=== PATIENT | female | born 1980 | race Caucasian/White ===

== ENCOUNTER → 2017-03-27 | Outpatient (CLI) | payer BC ==
--- NOTE | 2017-03-27 10:27 | MM ---
Reason for exam: screening (asymptomatic). Baseline mammogram. Physical Findings: Nurse did not find any significant physical abnormalities on exam. MG 3D Screening Mammo W/Cad Bilateral CC and MLO view(s) were taken. There are scattered fibroglandular densities. There is no discrete abnormality. These results were verbally communicated with the patient and result sheet given to the patient on 03/27/17. ASSESSMENT: Negative, BI-RAD 1 RECOMMENDATION: Routine screening mammogram of both breasts at age 42.
== END | disposition home or self-care (01) ==
LOC: RADMAMWWP 09:34
PROVIDERS: ATTEND Obstetrics & Gynecology
DX: Z12.31 Encounter for screening mammogram for malignant neoplasm of breast (principal)
CPT/HCPCS: 77063; G0202

== ENCOUNTER → 2017-04-10 | Outpatient (CLI) | payer BC ==
[2017-04-10 10:55] LABS: Basophils % (A) 0 %; CH 29.9; CHCM 34.3; Eosinophils # (A) 0.4 k/uL (0-0.7); Eosinophils % (A) 3 %; HCT 44.8 % (34.0-46.0); HDW 2.78; HGB 15.1 gm/dL (11.4-16.0); Luc # (Auto) 0.24; Luc % (Auto) 2; Lymphocytes # (A) 2.6 k/uL (1.0-4.8); Lymphocytes % (A) 25 %; MCH 29.6 pg (25.0-35.0); MCHC 33.7 g/dL (31.0-37.0); MCV 87.7 fL (80.0-100.0); Mean Platelet Volume 8.4; Monocytes # (A) 0.5 k/uL (0-1.0); Monocytes % (A) 5 %; Neutrophils # (A) 6.6 k/uL (1.3-7.7); Neutrophils % (A) 64 %; RBC 5.11 m/uL (3.80-5.40); RDW 14.8 % (11.5-15.5); WBC 10.4 k/uL (3.8-10.6)
== END | disposition home or self-care (01) ==
LOC: LABPAT 10:31
PROVIDERS: ATTEND Obstetrics & Gynecology
DX: Z01.812 Encounter for preprocedural laboratory examination (principal)
CPT/HCPCS: 85025

== ENCOUNTER → 2017-04-10 | Outpatient (CLI) | payer BC ==
[2017-04-10 11:11] LABS: ALT 36 U/L (9-52); AST 31 U/L (14-36); Alkaline Phosphatase 63 U/L (38-126); Anion Gap 10 mmol/L; Blood Urea Nitrogen 18 mg/dL (7-17); Calcium 8.7 mg/dL (8.4-10.2); Carbon Dioxide 28 mmol/L (22-30); Chloride 104 mmol/L (98-107); Cholesterol 170 mg/dL (<200); Creatine Kinase 218 U/L (30-135); Glucose 82 mg/dL (74-99); HDL Cholesterol 38 mg/dL (40-60); Non-African American GFR(MDRD) >60 (>60 ml/min/1.73 sqM); Potassium 4.1 mmol/L (3.5-5.1); Sodium 142 mmol/L (137-145); Total Bilirubin 0.5 mg/dL (0.2-1.3); Total Protein 7.1 g/dL (6.3-8.2); Triglycerides 148 mg/dL (<150)
== END | disposition home or self-care (01) ==
LOC: LABWHC1 10:31
PROVIDERS: ATTEND Pediatrics
DX: Z00.00 Encounter for general adult medical examination without abnormal findings (principal); M25.512 Pain in left shoulder; Z13.220 Encounter for screening for lipoid disorders
CPT/HCPCS: 36415; 80053; 80061; 82550

== ENCOUNTER 2017-05-01 05:59 | Day surgery (SDC) | payer BC ==
[2017-04-22 15:54] VITALS: BMI 37.7
--- NOTE | 2017-04-30 21:24 | P.HPOB ---
History of Present Illness H&P Date: 04/30/17 Chief Complaint: Menorrhagia This is a 37-year-old female 3 para 2 who presents for dilation and curettage with hysteroscopy and NovaSure endometrial ablation secondary to menorrhagia. Patient has continued to have heavy menses ever since the of her last child by delivery. She would like definitive surgical treatment. Pelvic ultrasound showed a normal-size uterus with no other abnormalities. She did have some small simple cysts on both ovaries. OB history: . History of 2 deliveries. History of 1 miscarriage. Gynecologic history: No history of sexual transmitted diseases. He has had a tubal ligation. Social history: She is and works as a teacher. Review of Systems Constitutional: Denies chills, Denies fever Ears, nose, mouth and throat: Denies headache, Denies sore throat Cardiovascular: Denies chest pain, Denies shortness of breath Respiratory: Denies cough Gastrointestinal: Denies abdominal pain, Denies diarrhea, Denies nausea, Denies vomiting Genitourinary: Reports menorrhagia, Reports pelvic pain Menstruation: Reports period heavy Musculoskeletal: Denies myalgias Neurological: Denies numbness, Denies weakness Psychiatric: Reports anxiety Past Medical History Past Medical History: GERD/Reflux History of Any Multi-Drug Resistant Organisms: None Reported Past Surgical History: Appendectomy, Section (X2), Orthopedic Surgery, Tubal Ligation Additional Past Surgical History / Comment(s): ARTHROSCOPY LEFT KNEE, D&C AFTER MISCARRIAGE, heavy bleeding during period Past Anesthesia/Blood Transfusion Reactions: Motion Sickness, Postoperative Nausea & Vomiting (PONV) Additional Past Anesthesia/Blood Transfusion Reaction / Comment(s): STATES EPIDURAL DID NOT WORK WITH LAST AND SHE HAD TO HAVE A GENERAL. Past Psychological History: Anxiety Smoking Status: Former smoker Past Alcohol Use History: None Reported Past Drug Use History: None Reported - Past Family History Father Family Medical History: Cancer Additional Family Medical History / Comment(s): PROSTATE CA, states father had bleeding disorder pt unsure name of disorder Sister(s) Family Medical History: Cancer Additional Family Medical History / Comment(s): CERVICAL CA ? Medications and Allergies Home Medications Medication Instructions Recorded Confirmed Type Fluticasone Nasal [place] [Flonase 1 spray EA NOSTRIL DAILY 04/22/17 05/01/17 History Nasal [place]] Multivitamins, Thera [Multivitamin 1 tab PO DAILY 04/22/17 05/01/17 History (formulary)] [place]-3 Fatty Acids/Fish Oil [Fish 1 each PO DAILY 04/22/17 05/01/17 History Oil 1,000 mg Softgel] Omeprazole [PriLOSEC] 40 mg PO DAILY 04/22/17 05/01/17 History Allergies Allergy/AdvReac Type Severity Reaction Status Date / Time venom-honey bee Allergy Severe Anaphylaxis Verified 05/01/17 06:24 [bee venom (honey bee)] nickel Allergy Unknown Rash/Hives Verified 05/01/17 06:24 Exam Osteopathic Statement: *. No significant issues noted on an osteopathic structural exam other than those noted in the History and Physical/Consult. HEENT: Within normal limits Heart: Regular rate and rhythm Lungs: Clear to auscultation bilaterally Abdomen: Soft, nontender Pelvic exam: Uterus is slightly enlarged, mild tenderness, with no adnexal masses palpated. Extremities: Negative Homans. Assessment and Plan (1) Menorrhagia with regular cycle Status: Acute Plan: Proceed with dilation and curettage with hysteroscopy and NovaSure endometrial ablation. I have discussed the risks, benefits, and alternative therapies for the above- mentioned procedure and for both sedation/anesthesia as well as necessary blood products administration, if indicated, as they pertain to this patient. The patient has indicated her understanding and acceptance of the risks and procedures discussed.
[~2017-05-01 05:59] MED LIST: DEXAMETHASONE SOD PHOSPHATE 10 MG/ML 1 ML VIAL IV ONE; HYDROmorphone 1 MG/ML 1 ML SYRINGE IVP PRN; LACTATED RINGERS 1,000 ML IV SCH; MIDAZOLAM 2 MG/2 ML VIAL IV PRN; ONDANSETRON 4 MG/2 ML VIAL IVP ONE; Pre Op ABX Message 1 EACH MISC MISCELLANE ONE; SCOPOLAMINE 1.5MG/72HR PATCH TRANSDERM ONE
[2017-05-01] MEDS ORDERED: fentaNYL (PF) 50 MCG/ML 2 ML AMP ONE (07:23)
[2017-05-01] MEDS ORDERED: PROPOFOL 10 MG/ML 20 ML VIAL IV ONE (07:23)
[2017-05-01] MEDS ORDERED: SUCCINYLCHOLINE CHLORIDE 100 MG/5 ML SYR IV ONE (07:23)
[2017-05-01] MEDS ORDERED: LIDOCAINE 1% INJ 10MG/ML (20 ML MDV) ONE (07:23)
[2017-05-01] MEDS ORDERED: KETOROLAC 30 MG/ML 1 ML VIAL ONE (07:23)
[2017-05-01] MEDS ORDERED: MIDAZOLAM 2 MG/2 ML VIAL ONE (07:23)
[2017-05-01 08:17] VITALS: TEMP 97.8
--- NOTE | 2017-05-01 08:17 | P.OP ---
Date of Procedure: 05/01/17 Preoperative Diagnosis: Menorrhagia Postoperative Diagnosis: Same Procedure(s) Performed: Dilation and curettage with hysteroscopy and NovaSure endometrial ablation Implants: Anesthesia: RAMÓN Surgeon: Reema Dinh Estimated Blood Loss (ml): 5 Pathology: other (Endometrial curettings) Condition: stable Disposition: same day Indications for Procedure: This is a 37-year-old female 3 para 2 who presents for dilation and curettage with hysteroscopy and NovaSure endometrial ablation secondary to menorrhagia. Patient has continued to have heavy menses ever since the of her last child by delivery. She would like definitive surgical treatment. Pelvic ultrasound showed a normal-size uterus with no other abnormalities. She did have some small simple cysts on both ovaries. Operative Findings: Uterus is sounded to 10 cm, and cervix is sounded to 4 cm. Upon hysteroscopy a slightly dyssynchronous endometrial pattern was noted with both tubal ostia visualized. There was a moderate amount of endometrial curettings obtained. No specific polyps or fibroids were visualized. Uterus was palpated and a mid position with no adnexal masses palpated. Description of Procedure: The patient is taken to the operating room. She is placed in the dorsal lithotomy position after general anesthesia was given. She is prepped and draped in the normal sterile fashion. Bladder is drained with a catheter and then removed. Pelvic exam is performed under anesthesia. Uterus is found to be mid position with no adnexal masses. She is placed in slight Trendelenburg position. A right angle retractor is used to visualize the cervix. The anterior lip of the cervix is grasped with a single-tooth tenaculum. Cervix is sounded to 4 cm. Uterus is sounded to 10 cm. Cervix is gently dilated with Mcnamara dilators until a hysteroscope could be passed. Hysteroscopy is performed using normal saline. The above noted findings are noted. Next a polyp forceps is introduced. A minimal amount of tissue was obtained. Next medium-sized size sharp curette was placed. A moderate amount of endometrial curettings were obtained. Next NovaSure array was inserted into the endometrial cavity. Length was set at 6 cm and width was determined to be 3.4 cm. Next cavity assessment was completed and passed on the first try. Next NovaSure array was fired at 112 W for 120 seconds. Next the array was removed, inspected and then discarded. Next the hysteroscope was reinserted. Uniform charring was noted. Pictures were taken. Hysteroscope was removed. Single-tooth tenaculum was removed from the anterior lip of the cervix. Minimal bleeding was noted. All other instruments removed from the vagina. Sponge counts were correct. Patient is taken to recovery room in stable condition.
[2017-05-01 08:26] VITALS: RESP 16
[2017-05-01] MEDS ORDERED: HYDROmorphone 1 MG/ML 1 ML SYRINGE IVP STA (10:40)
[2017-05-01] MEDS ORDERED: HYDROmorphone 1 MG/ML 1 ML SYRINGE IVP ONE (10:45)
[2017-05-01 11:31] VITALS: BP 115/67; PULSE 79
== END 2017-05-01 11:49 | disposition home or self-care (01) ==
LOC: OR 05:59
PROVIDERS: ATTEND Obstetrics & Gynecology
DX: N92.0 Excessive and frequent menstruation with regular cycle (principal); N85.00 Endometrial hyperplasia, unspecified; K21.9 Gastro-esophageal reflux disease without esophagitis; Z79.899 Other long term (current) drug therapy; Z79.51 Long term (current) use of inhaled steroids; Z87.891 Personal history of nicotine dependence
CPT/HCPCS: 88305; 58563; J2250; J1100; J2405; J2001; J3010; J1885; J1170; J0330; J2704

== ENCOUNTER 2017-08-14 16:52 | Emergency (ER) | payer BC ==
[2017-08-14 16:57] VITALS: RESP 18
[2017-08-14] MEDS ORDERED: diphenhydrAMINE 25 MG CAP PO STA (17:21)
[2017-08-14] MEDS ORDERED: DEXAMETHASONE SOD PHOSPHATE 10 MG/ML 1 ML VIAL IM STA (17:21)
[2017-08-14] MEDS ORDERED: FAMOTIDINE 20 MG TAB PO STA (17:21)
--- NOTE | 2017-08-14 17:25 | ED ---
General Adult HPI - General Chief complaint: Allergic Reaction Stated complaint: Allergic Reaction Time Seen by Provider: 08/14/17 17:16 Source: patient, RN notes reviewed Mode of arrival: ambulatory Limitations: no limitations - History of Present Illness Initial comments: 36-year-old female presents with suspected ALLERGIC reaction. Patient states she was in a bedroom cleaning at their house, felt some facial swelling and what she thought was a bug bite to her forehead. Patient states was a small amount of blood. She then had some sensation that her throat was swelling. Denies nausea or vomiting. Patient took Zyrtec prior to arrival. Pt does have history of bee sting ALLERGY. He is not believe she was stung by a bee. Symptoms began approximately one hour ago. They have not gotten worse since the onset. - Related Data Home Medications Medication Instructions Recorded Confirmed Fluticasone Nasal [place] [Flonase 1 spray EA NOSTRIL DAILY 04/22/17 08/14/17 Nasal [place]] Multivitamins, Thera [Multivitamin 1 tab PO DAILY 04/22/17 08/14/17 (formulary)] [place]-3 Fatty Acids/Fish Oil [Fish 1 cap PO DAILY 04/22/17 08/14/17 Oil 1,000 mg Softgel] Omeprazole [PriLOSEC] 40 mg PO DAILY 04/22/17 08/14/17 Previous Rx's Medication Instructions Recorded Famotidine [Pepcid] 20 mg PO DAILY #7 tablet 08/14/17 diphenhydrAMINE [Benadryl] 25 mg PO TID PRN #21 capsule 08/14/17 predniSONE 50 mg PO DAILY #5 tab 08/14/17 Allergies Allergy/AdvReac Type Severity Reaction Status Date / Time venom-honey bee Allergy Severe Anaphylaxis Verified 08/14/17 17:48 [bee venom (honey bee)] nickel Allergy Unknown Rash/Hives Verified 08/14/17 17:48 Review of Systems ROS Statement: Those systems with pertinent positive or pertinent negative responses have been documented in the HPI. ROS Other: All systems not noted in ROS Statement are negative. Past Medical History Past Medical History: GERD/Reflux Additional Past Medical History / Comment(s): History of Any Multi-Drug Resistant Organisms: None Reported Past Surgical History: Tubal Ligation, Uterine Ablation Additional Past Surgical History / Comment(s): ARTHROSCOPY LEFT KNEE, D&C AFTER MISCARRIAGE. Past Anesthesia/Blood Transfusion Reactions: Motion Sickness, Postoperative Nausea & Vomiting (PONV) Additional Past Anesthesia/Blood Transfusion Reaction / Comment(s): STATES EPIDURAL DID NOT WORK WITH LAST AND SHE HAD TO HAVE A GENERAL. Past Psychological History: No Psychological Hx Reported Smoking Status: Never smoker Past Alcohol Use History: Occasional Past Drug Use History: None Reported - Past Family History Father Family Medical History: Cancer Additional Family Medical History / Comment(s): PROSTATE CA, states father had bleeding disorder pt unsure name of disorder Sister(s) Family Medical History: Cancer Additional Family Medical History / Comment(s): CERVICAL CA ? General Exam Limitations: no limitations General appearance: alert, in no apparent distress Head exam: Present: atraumatic, normocephalic Eye exam: Present: normal appearance, PERRL, EOMI ENT exam: Present: normal exam, other (No uvular posterior oropharynx or tongue swelling) Neck exam: Present: normal inspection, full ROM. Absent: tenderness, meningismus Respiratory exam: Present: normal lung sounds bilaterally. Absent: respiratory distress, wheezes Cardiovascular Exam: Present: regular rate, normal rhythm GI/Abdominal exam: Present: soft. Absent: distended, tenderness Extremities exam: Present: normal inspection, normal capillary refill. Absent: pedal edema Neurological exam: Present: alert, oriented X3 Psychiatric exam: Present: normal affect, normal mood Skin exam: Present: warm, dry, intact. Absent: cyanosis, diaphoretic Course Vital Signs 08/14/17 08/14/17 16:54 17:21 Temperature 98.1 F Pulse Rate 83 66 Respiratory 18 18 Rate Blood Pressure 150/76 O2 Sat by Pulse 100 97 Oximetry Medical Decision Making - Medical Decision Making 37-year-old female presenting with suspected ALLERGIC reaction. Patient is not in acute distress, no signs of anaphylaxis. She was given Pepcid, Benadryl, and Decadron in the emergency department. She is observed, with no worsening of her symptoms. There is no airway involvement. No respiratory distress. Patient has an EpiPen for bee sting ALLERGY Disposition Clinical Impression: Allergic reaction Disposition: HOME SELF-CARE Condition: Good Instructions: Allergies (ED), Anaphylaxis (ED) Prescriptions: diphenhydrAMINE [Benadryl] 25 mg PO TID PRN #21 capsule PRN Reason: Allergic Reaction Famotidine [Pepcid] 20 mg PO DAILY #7 tablet predniSONE 50 mg PO DAILY #5 tab Referrals: Elmer Bautista MD [Primary Care Provider] - 1-2 days Time of Disposition: 18:08
[2017-08-14 18:24] VITALS: BP 104/66; PULSE 54; TEMP 98.4
== END 2017-08-14 18:24 | disposition home or self-care (01) ==
LOC: EC 16:52
DX: T78.40XA Allergy, unspecified, initial encounter (principal); K21.9 Gastro-esophageal reflux disease without esophagitis; Z91.030 Bee allergy status; Z91.048 Other nonmedicinal substance allergy status; Z79.51 Long term (current) use of inhaled steroids; Z79.899 Other long term (current) drug therapy
CPT/HCPCS: 99283; 96372; J1100

== ENCOUNTER 2018-02-03 13:51 | Observation (INO) | payer BC ==
[2018-02-03] MEDS ORDERED: ASPIRIN 81 MG PO STA (14:24)
[2018-02-03] MEDS ORDERED: NITROGLYCERIN OINT 1 INCH/GM PACKET TOPICAL STA (14:24)
--- NOTE | 2018-02-03 14:28 | ED ---
General Adult HPI - General Chief complaint: Chest Pain Stated complaint: Chest pain Time Seen by Provider: 02/03/18 14:14 Source: patient, family, RN notes reviewed Mode of arrival: EMS Limitations: no limitations - History of Present Illness Initial comments: Patient is a pleasant 37-year-old female presenting to the emergency Department with chest discomfort. Onset was prior to arrival. Discomfort was sharp and started the lower sternal region radiating to the left lower breast. Patient received 2 nitroglycerin by EMS and now only has mild pressure in the sternal region. Patient did have mild associated dyspnea and sweating. No nausea. Patient did have similar symptoms a couple of months ago and saw her doctor with a reported normal EKG. No prior history of cardiac problems. Patient does take diet pills. Patient does have a history family history of cardiac disease however not at a young age. - Related Data Home Medications Medication Instructions Recorded Confirmed Fluticasone Nasal [place] [Flonase 1 spray EA NOSTRIL DAILY 04/22/17 02/03/18 Nasal [place]] Multivitamins, Thera [Multivitamin 1 tab PO DAILY 04/22/17 02/03/18 (formulary)] [place]-3 Fatty Acids/Fish Oil [Fish 1 cap PO DAILY 04/22/17 02/03/18 Oil 1,000 mg Softgel] Omeprazole [PriLOSEC] 40 mg PO BID 04/22/17 02/03/18 Cetirizine HCl [Zyrtec] 10 mg PO DAILY PRN 02/03/18 02/03/18 Naltrexone HCl/Bupropion HCl 2 tab PO BID 02/03/18 02/03/18 [Contrave ER 8-90 mg Tablet] Ranitidine HCl [Zantac] 150 mg PO HS 02/03/18 02/03/18 Allergies Allergy/AdvReac Type Severity Reaction Status Date / Time venom-honey bee Allergy Severe Anaphylaxis Verified 02/03/18 15:00 [bee venom (honey bee)] nickel Allergy Unknown Rash/Hives Verified 02/03/18 15:00 Review of Systems ROS Statement: Those systems with pertinent positive or pertinent negative responses have been documented in the HPI. ROS Other: All systems not noted in ROS Statement are negative. Constitutional: Denies: fever Eyes: Denies: eye pain ENT: Denies: ear pain Respiratory: Denies: cough Cardiovascular: Reports: chest pain, palpitations Endocrine: Denies: fatigue Gastrointestinal: Denies: abdominal pain, nausea Genitourinary: Denies: dysuria Musculoskeletal: Denies: back pain Skin: Denies: rash Neurological: Denies: weakness Past Medical History Past Medical History: GERD/Reflux Additional Past Medical History / Comment(s): History of Any Multi-Drug Resistant Organisms: None Reported Past Surgical History: Tubal Ligation, Uterine Ablation Additional Past Surgical History / Comment(s): ARTHROSCOPY LEFT KNEE, D&C AFTER MISCARRIAGE, LYPOMA LEFT BREAST Past Anesthesia/Blood Transfusion Reactions: Motion Sickness, Postoperative Nausea & Vomiting (PONV) Additional Past Anesthesia/Blood Transfusion Reaction / Comment(s): STATES EPIDURAL DID NOT WORK WITH LAST AND SHE HAD TO HAVE A GENERAL. Past Psychological History: No Psychological Hx Reported Smoking Status: Former smoker Past Alcohol Use History: Occasional Past Drug Use History: None Reported - Past Family History Father Family Medical History: Cancer Additional Family Medical History / Comment(s): PROSTATE CA, states father had bleeding disorder pt unsure name of disorder Sister(s) Family Medical History: Cancer Additional Family Medical History / Comment(s): CERVICAL CA ? General Exam Limitations: no limitations General appearance: alert, in no apparent distress Head exam: Present: atraumatic Eye exam: Present: normal appearance ENT exam: Present: normal oropharynx Neck exam: Present: normal inspection Respiratory exam: Present: normal lung sounds bilaterally. Absent: chest wall tenderness Cardiovascular Exam: Present: regular rate, normal rhythm, normal heart sounds Expanded Peripheral pulses: 2+: Radial (R), Radial (L), Dorsalis Pedis (R), Dorsalis Pedis (L) GI/Abdominal exam: Present: soft. Absent: tenderness Extremities exam: Present: normal inspection. 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 EKG Findings - EKG Comments: EKG Findings:: Normal sinus rhythm 67. MT 176. QRS 98. QT 432. QTC 456. Normal axis. Normal QRS. Nonspecific T waves. Medical Decision Making - Medical Decision Making Patient reevaluated and resting comfortably in bed. Patient and family updated on results and plan. Case was discussed in detail with Dr. schroeder, who will admit for Dr. Bautista. - Lab Data Result diagrams: 02/03/18 14:08 02/03/18 14:08 Lab Results 02/03/18 02/03/18 02/03/18 Range/Units 14:08 14:08 14:08 WBC 11.8 H (3.8-10.6) k/uL RBC 5.11 (3.80-5.40) m/uL Hgb 14.8 (11.4-16.0) gm/dL Hct 43.2 (34.0-46.0) % MCV 84.7 (80.0-100.0) fL MCH 29.0 (25.0-35.0) pg MCHC 34.2 (31.0-37.0) g/dL RDW 13.2 (11.5-15.5) % Plt Count 231 (150-450) k/uL Neutrophils % 72 % Lymphocytes % 19 % Monocytes % 6 % Eosinophils % 1 % Basophils % 0 % Neutrophils # 8.5 H (1.3-7.7) k/uL Lymphocytes # 2.3 (1.0-4.8) k/uL Monocytes # 0.7 (0-1.0) k/uL Eosinophils # 0.1 (0-0.7) k/uL Basophils # 0.0 (0-0.2) k/uL PT (9.0-12.0) sec INR (<1.2) APTT (22.0-30.0) sec Sodium 143 (137-145) mmol/L Potassium 3.7 (3.5-5.1) mmol/L Chloride 105 (98-107) mmol/L Carbon Dioxide 25 (22-30) mmol/L Anion Gap 13 mmol/L BUN 15 (7-17) mg/dL Creatinine 0.76 (0.52-1.04) mg/dL Est GFR (CKD-EPI)AfAm >90 (>60 ml/min/1.73 sqM) Est GFR (CKD-EPI)NonAf >90 (>60 ml/min/1.73 sqM) Glucose 89 (74-99) mg/dL Calcium 9.4 (8.4-10.2) mg/dL Magnesium 1.9 (1.6-2.3) mg/dL Total Bilirubin 0.6 (0.2-1.3) mg/dL AST 32 (14-36) U/L ALT 34 (9-52) U/L Alkaline Phosphatase 52 (38-126) U/L Total Creatine Kinase 230 H (30-135) U/L CK-MB (CK-2) 2.8 H* (0.0-2.4) ng/mL CK-MB (CK-2) Rel Index 1.2 Troponin I <0.012 (0.000-0.034) ng/mL Total Protein 6.7 (6.3-8.2) g/dL Albumin 4.2 (3.5-5.0) g/dL 02/03/18 Range/Units 14:08 WBC (3.8-10.6) k/uL RBC (3.80-5.40) m/uL Hgb (11.4-16.0) gm/dL Hct (34.0-46.0) % MCV (80.0-100.0) fL MCH (25.0-35.0) pg MCHC (31.0-37.0) g/dL RDW (11.5-15.5) % Plt Count (150-450) k/uL Neutrophils % % Lymphocytes % % Monocytes % % Eosinophils % % Basophils % % Neutrophils # (1.3-7.7) k/uL Lymphocytes # (1.0-4.8) k/uL Monocytes # (0-1.0) k/uL Eosinophils # (0-0.7) k/uL Basophils # (0-0.2) k/uL PT 10.5 (9.0-12.0) sec INR 1.1 (<1.2) APTT 24.4 (22.0-30.0) sec Sodium (137-145) mmol/L Potassium (3.5-5.1) mmol/L Chloride (98-107) mmol/L Carbon Dioxide (22-30) mmol/L Anion Gap mmol/L BUN (7-17) mg/dL Creatinine (0.52-1.04) mg/dL Est GFR (CKD-EPI)AfAm (>60 ml/min/1.73 sqM) Est GFR (CKD-EPI)NonAf (>60 ml/min/1.73 sqM) Glucose (74-99) mg/dL Calcium (8.4-10.2) mg/dL Magnesium (1.6-2.3) mg/dL Total Bilirubin (0.2-1.3) mg/dL AST (14-36) U/L ALT (9-52) U/L Alkaline Phosphatase (38-126) U/L Total Creatine Kinase (30-135) U/L CK-MB (CK-2) (0.0-2.4) ng/mL CK-MB (CK-2) Rel Index Troponin I (0.000-0.034) ng/mL Total Protein (6.3-8.2) g/dL Albumin (3.5-5.0) g/dL - Radiology Data Radiology results: image reviewed (Chest x-ray shows no acute process) Disposition Clinical Impression: Chest pain Disposition: ADMITTED IP TO THIS HOSP Is patient prescribed a controlled substance at d/c from ED?: No Referrals: Elmer Bautista MD [Primary Care Provider] - 1-2 days Decision Time: 15:45
[2018-02-03 14:33] LABS: Basophils % (A) 0 %; Eosinophils # (A) 0.1 k/uL (0-0.7); Eosinophils % (A) 1 %; HCT 43.2 % (34.0-46.0); HGB 14.8 gm/dL (11.4-16.0); Lymphocytes # (A) 2.3 k/uL (1.0-4.8); Lymphocytes % (A) 19 %; MCHC 34.2 g/dL (31.0-37.0); MCV 84.7 fL (80.0-100.0); Mean Platelet Volume 8.1; Monocytes # (A) 0.7 k/uL (0-1.0); Monocytes % (A) 6 %; Neutrophils # (A) 8.5 k/uL (1.3-7.7); Neutrophils % (A) 72 %; Platelet Count 231 k/uL (150-450); RBC 5.11 m/uL (3.80-5.40); RDW 13.2 % (11.5-15.5); WBC 11.8 k/uL (3.8-10.6)
--- NOTE | 2018-02-03 14:41 | XR ---
EXAMINATION TYPE: XR chest 2V DATE OF EXAM: 02/03/2018 COMPARISON: Prior chest x-ray 06/02/2015 HISTORY: Chest pain TECHNIQUE: Frontal and lateral views of the chest are obtained. FINDINGS: There is no focal air space opacity, pleural effusion, or pneumothorax seen. The cardiac silhouette size is within normal limits. The osseous structures are intact. IMPRESSION: No acute cardiopulmonary process.
[2018-02-03 14:42] LABS: INR 1.1 (<1.2); Partial Thromboplastin Time 24.4 sec (22.0-30.0); Prothrombin Time 10.5 sec (9.0-12.0)
[2018-02-03 14:45] LABS: ALT 34 U/L (9-52); AST 32 U/L (14-36); Albumin 4.2 g/dL (3.5-5.0); Alkaline Phosphatase 52 U/L (38-126); Anion Gap 13 mmol/L; Blood Urea Nitrogen 15 mg/dL (7-17); Calcium 9.4 mg/dL (8.4-10.2); Carbon Dioxide 25 mmol/L (22-30); Chloride 105 mmol/L (98-107); Glucose 89 mg/dL (74-99); Magnesium 1.9 mg/dL (1.6-2.3); Potassium 3.7 mmol/L (3.5-5.1); Sodium 143 mmol/L (137-145); Total Bilirubin 0.6 mg/dL (0.2-1.3); Total Protein 6.7 g/dL (6.3-8.2)
[2018-02-03 14:57] LABS: Creatine Kinase 230 U/L (30-135)
[2018-02-03 15:09] LABS: Troponin I <0.012 ng/mL (0.000-0.034)
[2018-02-03 15:12] LABS: Creatine Kinase MB 2.8 ng/mL (0.0-2.4)
[2018-02-03] MEDS ORDERED: NITROGLYCERIN SL TABS 0.4 MG TAB SUBLINGUAL PRN (15:45)
[2018-02-03 16:23] VITALS: RESP 16
[2018-02-03] MEDS ORDERED: LORATADINE 10 MG TAB PO PRN (17:40)
[2018-02-03] MEDS: NITROGLYCERIN OINT 1 INCH/GM PACKET TOPICAL SCH (18:27)
[2018-02-03] MEDS: ACETAMINOPHEN TAB 325 MG TAB PO PRN (18:34)
[2018-02-03] MEDS: PANTOPRAZOLE 40 MG TABLET PO SCH (18:35)
[2018-02-03 21:03] LABS: Creatine Kinase 181 U/L (30-135)
[2018-02-03 21:15] LABS: Troponin I <0.012 ng/mL (0.000-0.034)
[2018-02-03] MEDS: NALTREXONE HCL PO SCH (21:51)
[2018-02-03] MEDS: BUPROPION HCL PO SCH (21:51)
--- NOTE | 2018-02-03 23:14 | HP ---
HISTORY AND PHYSICAL DATE OF SERVICE: February 03, 2018. PRESENTING COMPLAINT: Lower chest pain. HISTORY OF PRESENTING COMPLAINT: This is a very pleasant 37-year-old patient of Dr. Bautista with only significant history of GERD. The patient this morning after doing exercises noticed a dull ache in the lower sternal area and afterwards it did radiate to the left breast area. There was no nausea, vomiting and no dizziness. No lightheadedness. Normally patient does hard work out of T25 and a lot of stretching. She has been doing this for now 8 weeks. The patient's reflux did not bother her with different foods. The patient went to her work and told her boss and decided to come in. The patient is otherwise very active and no prior cardiac history. The patient has a strong family cardiac history. REVIEW OF SYSTEMS: CONSTITUTIONAL: None. HEENT: None. RESPIRATORY: None. CARDIOVASCULAR: As above. Gastrointestinal as above. Musculoskeletal: None. Dermatological, hematologic, lymphatic none. Psychiatry none. Neurological none. PAST MEDICAL HISTORY: GERD, left breast lipoma. PAST SURGICAL HISTORY: , tubal ligation, uterine ablation, arthroscopy of the left knee, D and C after miscarriage, hysteroscopy, uterine ablation. 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 The patient smoked for 3 years. Stopped in 2011. Smoked a pack a day. Alcohol occasionally. FAMILY HISTORY: Father had prostate cancer and a bleeding disorder. Mother of a heart attack age 69. Father had 2 heart attacks. HOME MEDICATIONS: 1. Zantac 150 mg q.h.s. 2. Prilosec 40 mg b.i.d. 3. Fish oil. 4. Contrave p.r.n. 8/90 2 tablets b.i.d. 5. Multivitamin. 6. Flonase. 7. Zyrtec 10 mg daily p.r.n. ALLERGY: To BEE VENOM, HONEY BEE, NICKEL. PHYSICAL EXAMINATION: Temperature 98.7, pulse 62, respirations 16, blood pressure 127/65, pulse ox 94% on room air. General appearance: Well built, BMI 36.3. Lying in bed comfortable. Eyes pupils equal. Conjunctivae normal. HEENT: External appearance of nose and ears normal. Oral cavity normal. Neck JVD not raised. Mass not palpable. Respiratory effort normal. LUNGS: Clear. Cardiovascular: First and seconds sounds normal. No edema. ABDOMEN: Soft, nontender. Liver and spleen not palpable. Lymphatics: No lymph node palpable in the neck and axilla. PSYCHIATRY: Alert and oriented x3. Mood and affect normal. Neurological pupils equal. Cranial nerves grossly intact. Power and sensation grossly intact. INVESTIGATIONS: White count 11.8, hemoglobin 14.8, potassium 3.7. Troponin less than 0.012 x 2. Chest x-ray unremarkable. EKG shows some nonspecific changes in the inferior leads. ASSESSMENT: 1. Anterior chest wall pain in a patient who does T25 other regular exercise. This could be musculoskeletal, but the patient has some nonspecific changes on the EKG and has a positive family history. Hence, patient may need a stress test as an outpatient. 2. Possible esophageal spasm in a patient with known gastroesophageal reflux disease. 3. Gastroesophageal reflux disease. 4. Obesity, BMI 36.3. PLAN: Patient's home medications will be continued. Cardiology was consulted. Care was discussed with the patient. The patient should see a dietitian as an outpatient for weight loss. The patient is already doing well with regular exercises. Care was discussed with the patient. Copy to Dr. Bautista. MMODL / IJN: [id number] /
[2018-02-04] MEDS: NITROGLYCERIN OINT 1 INCH/GM PACKET TOPICAL SCH ×3 (00:47→11:09)
[2018-02-04 02:49] LABS: Cholesterol 170 mg/dL (<200); HDL Cholesterol 40 mg/dL (40-60); LDL Cholesterol,Calculated 104 mg/dL (0-99); Triglycerides 128 mg/dL (<150)
[2018-02-04 02:54] LABS: Creatine Kinase 169 U/L (30-135)
[2018-02-04 03:07] LABS: Creatine Kinase MB 1.6 ng/mL (0.0-2.4); Troponin I <0.012 ng/mL (0.000-0.034)
[2018-02-04] MEDS: PANTOPRAZOLE 40 MG TABLET PO SCH (07:39)
[2018-02-04] MEDS: ACETAMINOPHEN TAB 325 MG TAB PO PRN (07:39)
[2018-02-04] MEDS: BUPROPION HCL PO SCH (08:18)
[2018-02-04] MEDS: NALTREXONE HCL PO SCH (08:18)
[2018-02-04] MEDS ORDERED: ASPIRIN 325 MG TAB PO SCH (09:00)
[2018-02-04 11:54] VITALS: BP 121/74; PULSE 90; TEMP 98.1
--- NOTE | 2018-02-04 12:27 | P.CRDCN ---
History of Present Illness Consult date: 02/05/18 History of present illness: Mrs. Adan is a pleasant 37-year-old female past medical history significant for gastroesophageal reflux disease. She denies history of coronary artery disease and has never seen a machine sign writer for any reason. Both of her parents have heart disease with her father requiring angioplasty and her mother from heart attack at 69 years old. We have been asked to see her in consultation for chest pain. She states she worked out yesterday morning without incident. Then around 1130 started feeling a non-specific discomfort in her chest then palpitations and fluttering in her chest. This was making her feel fidgety and uncomfortable. She went to her boss and was evaluated by a police and fire dispatcher that was in the building and he told her she felt very clammy. EMS was called for further evaluation, she was put on an EKG and was told there were no abnormalities and her heart rate was normal. SL nitro was given and the discomfort increased in the in mid sternal region initially, after the second nitro it subsided. She denies any further symptoms of chest pain, palpitations or diaphoresis. She denies radiation of the pain to the arm, back, neck or jaw. She denies ever having symptoms of nausea, vomiting or dizziness. EKG reveals sinus mechanism with non-specific T-wave abnormalities. Telemetry tracings have been unremarkable. No evidence of arrhythmia. Chest x-ray is negative for an acute cardiopulmonary process. Laboratory data reviewed, WBC 11.8, hemoglobin 14.8, platelets 231, sodium 143, potassium 3.7, magnesium 1.9, creatinine 0.76, cardiac enzymes negative 3, LDL 104, HDL 40. Current daily medications include Zantac, Prilosec, contrary, Zyrtec and fluticasone. Review of Systems At the time of my exam: CONSTITUTIONAL: Denies fever. Denies chills. EYES: Denies blurred vision. Denies vision changes. Denies eye pain. EARS, NOSE, MOUTH & THROAT: Denies headache. Denies sore throat. Denies ear pain. CARDIOVASCULAR: Denies chest pain. Denies shortness of breath. Denies orthopnea. Denies PND. Denies palpitations. RESPIRATORY: Denies cough. GASTROINTESTINAL: Denies abdominal pain. Denies diarrhea. Denies constipation. Denies nausea. Denies vomiting. MUSCULOSKELETAL: Denies myalgias. INTEGUMENTARY: Denies pruitis. Denies rash. NEUROLOGIC: Denies numbness. Denies tingling. Denies weakness. PSYCHIATRIC: Denies anxiety. Denies depression. ENDOCRINE: Denies fatigue. Denies weight change. Denies polydipsia. Denies polyurina. GENITOURINARY: Denies burning, hematuria or urgency with micturation. HEMATOLOGIC: Denies history of anemia. Denies bleeding. Past Medical History Past Medical History: GERD/Reflux Additional Past Medical History / Comment(s): lt breast lypoma pt stated is d/t have it removed this thursday History of Any Multi-Drug Resistant Organisms: None Reported Past Surgical History: Section, Tubal Ligation, Uterine Ablation Additional Past Surgical History / Comment(s): ARTHROSCOPY LEFT KNEE, D&C AFTER MISCARRIAGE, 2 c-sections, hysteroscopy and uterine ablation Past Anesthesia/Blood Transfusion Reactions: Motion Sickness, Postoperative Nausea & Vomiting (PONV) Additional Past Anesthesia/Blood Transfusion Reaction / Comment(s): STATES EPIDURAL DID NOT WORK WITH LAST AND SHE HAD TO HAVE A GENERAL. Smoking Status: Former smoker - Past Family History Father Family Medical History: Cancer Additional Family Medical History / Comment(s): PROSTATE CA, states father had bleeding disorder pt unsure name of disorder Sister(s) Family Medical History: Cancer Additional Family Medical History / Comment(s): CERVICAL CA ? Medications and Allergies Home Medications Medication Instructions Recorded Confirmed Type Fluticasone Nasal [place] [Flonase 1 spray EA NOSTRIL DAILY 04/22/17 02/03/18 History Nasal [place]] Multivitamins, Thera [Multivitamin 1 tab PO DAILY 04/22/17 02/03/18 History (formulary)] [place]-3 Fatty Acids/Fish Oil [Fish 1 cap PO DAILY 04/22/17 02/03/18 History Oil 1,000 mg Softgel] Omeprazole [PriLOSEC] 40 mg PO BID 04/22/17 02/03/18 History Cetirizine HCl [Zyrtec] 10 mg PO DAILY PRN 02/03/18 02/03/18 History Naltrexone HCl/Bupropion HCl 2 tab PO BID 02/03/18 02/03/18 History [Contrave ER 8-90 mg Tablet] Ranitidine HCl [Zantac] 150 mg PO HS 02/03/18 02/03/18 History Allergies Allergy/AdvReac Type Severity Reaction Status Date / Time venom-honey bee Allergy Severe Anaphylaxis Verified 02/03/18 15:00 [bee venom (honey bee)] nickel Allergy Unknown Rash/Hives Verified 02/03/18 15:00 Physical Exam Vitals: Vital Signs Temp Pulse Pulse Pulse Resp BP BP 02/04/18 07:40 97.8 F 72 16 103/71 02/04/18 04:00 98.4 F 57 L 68 16 113/62 02/03/18 23:36 58 L 16 02/03/18 23:15 98.6 F 61 16 117/62 02/03/18 20:00 63 16 02/03/18 19:48 98.7 F 62 16 127/65 02/03/18 16:45 98.5 F 72 16 116/67 02/03/18 16:22 98.2 F 73 16 128/62 02/03/18 15:17 76 18 128/69 02/03/18 14:01 72 02/03/18 13:52 98.5 F 69 18 119/69 Pulse Ox 02/04/18 07:40 95 02/04/18 04:00 98 02/03/18 23:36 02/03/18 23:15 95 02/03/18 20:00 02/03/18 19:48 94 L 02/03/18 16:45 94 L 02/03/18 16:22 97 02/03/18 15:17 97 02/03/18 14:01 02/03/18 13:52 98 Intake and Output 02/03/18 02/04/18 02/04/18 22:59 06:59 14:59 Intake Total 300 Balance 300 Intake: Oral 300 Other: Voiding Method Toilet Toilet Toilet # Voids 2 Weight 102.1 kg Blood pressure 121/74 heart rate 90 afebrile maintaining oxygen saturation on room air GENERAL: This is a 37-year-old female in no apparent distress at the time of my examination. HEENT: Head is atraumatic, normocephalic. Pupils are equal, round. Sclerae anicteric. Conjunctivae are clear. Mucous membranes of the mouth are moist. Neck is supple. There is no jugular venous distention. No carotid bruit is heard. LUNGS: Clear to auscultation no wheezes, rales or rhonchi. No chest wall tenderness is noted on palpation or with deep breathing. HEART: Regular rate and rhythm without murmurs, rubs or gallops. S1 and S2 heard. ABDOMEN: Soft, nontender. Bowel sounds are heard. No organomegaly noted. EXTREMITIES: No evidence of peripheral edema and no calf tenderness noted. VASCULAR: Radial and dorsalis pedis pulses palpated, no evidence of clubbing. NEUROLOGIC: Patient is awake, alert and oriented x3. Results 02/03/18 14:08 02/03/18 14:08 Cardiac Enzymes 02/03/18 02/03/18 02/03/18 Range/Units 14:08 14:08 20:25 AST 32 (14-36) U/L CK-MB (CK-2) 2.8 H* 2.0 (0.0-2.4) ng/mL Troponin I <0.012 <0.012 (0.000-0.034) ng/mL 02/04/18 Range/Units 02:06 AST (14-36) U/L CK-MB (CK-2) 1.6 (0.0-2.4) ng/mL Troponin I <0.012 (0.000-0.034) ng/mL Coagulation 02/03/18 Range/Units 14:08 PT 10.5 (9.0-12.0) sec APTT 24.4 (22.0-30.0) sec Lipids 02/04/18 Range/Units 02:06 Triglycerides 128 (<150) mg/dL Cholesterol 170 (<200) mg/dL HDL Cholesterol 40 (40-60) mg/dL CBC 02/03/18 Range/Units 14:08 WBC 11.8 H (3.8-10.6) k/uL RBC 5.11 (3.80-5.40) m/uL Hgb 14.8 (11.4-16.0) gm/dL Hct 43.2 (34.0-46.0) % Plt Count 231 (150-450) k/uL Comprehensive Metabolic Panel 02/03/18 Range/Units 14:08 Sodium 143 (137-145) mmol/L Potassium 3.7 (3.5-5.1) mmol/L Chloride 105 (98-107) mmol/L Carbon Dioxide 25 (22-30) mmol/L BUN 15 (7-17) mg/dL Creatinine 0.76 (0.52-1.04) mg/dL Glucose 89 (74-99) mg/dL Calcium 9.4 (8.4-10.2) mg/dL AST 32 (14-36) U/L ALT 34 (9-52) U/L Alkaline Phosphatase 52 (38-126) U/L Total Protein 6.7 (6.3-8.2) g/dL Albumin 4.2 (3.5-5.0) g/dL Current Medications Generic Name Dose Route Start Last Admin Trade Name Freq PRN Reason Stop Dose Admin Acetaminophen 650 mg 02/03/18 17:56 02/04/18 07:39 Tylenol Tab PO 650 mg Q4HR PRN Administration Fever and/ or Pain Aspirin 325 mg 02/04/18 09:00 02/04/18 08:27 Aspirin PO 325 mg DAILY [facility] Administration Loratadine 10 mg 02/03/18 17:40 02/03/18 20:34 Claritin PO 10 mg DAILY PRN Administration Allergy Symptoms Nitroglycerin 1 inch 02/03/18 18:00 02/04/18 05:32 Nitro-Bid Oint TOPICAL Not Given Q6HR [facility] Nitroglycerin 0.4 mg 02/03/18 15:45 Nitrostat SUBLINGUAL Q5M PRN Chest Pain Naltrexone Hcl/ 2 tab 02/03/18 21:00 02/04/18 08:18 Bupropion Hcl [ PO Not Given Contrave Er 8-90 Mg BID [facility] Tablet] 2 Tab Pantoprazole Sodium 40 mg 02/03/18 17:45 02/04/18 07:39 Protonix PO 40 mg AC-BID TAWNY Administration Intake and Output 02/03/18 02/04/18 02/04/18 22:59 06:59 14:59 Intake Total 300 Balance 300 Intake: Oral 300 Other: Voiding Method Toilet Toilet Toilet # Voids 2 Weight 102.1 kg 02/03/18 14:08 02/03/18 14:08 Assessment and Plan Assessment: ASSESSMENT 1. Chest pain, atypical. Not acute coronary event has been ruled out with no EKG evidence of acute ischemia and negative cardiac enzymes. 2. History of gastroesophageal reflux disease 3. Obesity 4. Family history of coronary artery disease PLAN Check d-dimer to rule out pulmonary embolism. Obtain exercise stress test to assess for stress-induced ischemia or arrhythmia. If above diagnostic testing is normal she is stable from a cardiac perspective. Follow-up with Dr. Sherman in 6 weeks. Thank you kindly for this consultation. Nurse Practitioner note has been reviewed, I agree with a documented findings and plan of care. Patient was seen and examined.
--- NOTE | 2018-02-04 13:19 | P.CRDCN ---
History of Present Illness History of present illness: Patient interviewed and examined. Atypical dull ache that lasted for several hours post exercise. Later she started experiencing a rapid heartbeat. Cardiac enzymes are normal. ECG is normal Increased BMI noted Nonsmoker nondiabetic LDL 104, total cholesterol 170, triglycerides 128 and HDL 40 Suggest Exercise stress test to maximum capacity If normal she may go home and I will schedule an event monitor from the office Although Dr. Lester in 6-8 weeks Past Medical History Past Medical History: GERD/Reflux Additional Past Medical History / Comment(s): lt breast lypoma pt stated is d/t have it removed this thursday History of Any Multi-Drug Resistant Organisms: None Reported Past Surgical History: Section, Tubal Ligation, Uterine Ablation Additional Past Surgical History / Comment(s): ARTHROSCOPY LEFT KNEE, D&C AFTER MISCARRIAGE, 2 c-sections, hysteroscopy and uterine ablation Past Anesthesia/Blood Transfusion Reactions: Motion Sickness, Postoperative Nausea & Vomiting (PONV) Additional Past Anesthesia/Blood Transfusion Reaction / Comment(s): STATES EPIDURAL DID NOT WORK WITH LAST AND SHE HAD TO HAVE A GENERAL. Smoking Status: Former smoker - Past Family History Father Family Medical History: Cancer Additional Family Medical History / Comment(s): PROSTATE CA, states father had bleeding disorder pt unsure name of disorder Sister(s) Family Medical History: Cancer Additional Family Medical History / Comment(s): CERVICAL CA ? Medications and Allergies Home Medications Medication Instructions Recorded Confirmed Type Omeprazole [PriLOSEC] 40 mg PO BID 04/22/17 02/03/18 History Naltrexone HCl/Bupropion HCl 2 tab PO BID 02/03/18 02/03/18 History [Contrave ER 8-90 mg Tablet] Ranitidine HCl [Zantac] 150 mg PO HS 02/03/18 02/03/18 History Allergies Allergy/AdvReac Type Severity Reaction Status Date / Time venom-honey bee Allergy Severe Anaphylaxis Verified 02/03/18 15:00 [bee venom (honey bee)] nickel Allergy Unknown Rash/Hives Verified 02/03/18 15:00 Physical Exam Vitals: Vital Signs Temp Pulse Pulse Pulse Resp BP BP 02/04/18 11:35 98.1 F 90 16 121/74 02/04/18 07:40 97.8 F 72 16 02/04/18 04:00 98.4 F 57 L 68 16 02/03/18 23:36 58 L 16 02/03/18 23:15 98.6 F 61 16 02/03/18 20:00 63 16 02/03/18 19:48 98.7 F 62 16 02/03/18 16:45 98.5 F 72 16 02/03/18 16:22 98.2 F 73 16 128/62 02/03/18 15:17 76 18 128/69 02/03/18 14:01 72 02/03/18 13:52 98.5 F 69 18 119/69 BP Pulse Ox 02/04/18 11:35 98 02/04/18 07:40 103/71 95 02/04/18 04:00 113/62 98 02/03/18 23:36 02/03/18 23:15 117/62 95 02/03/18 20:00 02/03/18 19:48 127/65 94 L 02/03/18 16:45 116/67 94 L 02/03/18 16:22 97 02/03/18 15:17 97 02/03/18 14:01 02/03/18 13:52 98 Intake and Output 02/03/18 02/04/18 02/04/18 22:59 06:59 14:59 Intake Total 300 Balance 300 Intake: Oral 300 Other: Voiding Method Toilet Toilet Toilet # Voids 2 Weight 102.1 kg Results 02/03/18 14:08 02/03/18 14:08 Cardiac Enzymes 02/03/18 02/03/18 02/03/18 Range/Units 14:08 14:08 20:25 AST 32 (14-36) U/L CK-MB (CK-2) 2.8 H* 2.0 (0.0-2.4) ng/mL Troponin I <0.012 <0.012 (0.000-0.034) ng/mL 02/04/18 Range/Units 02:06 AST (14-36) U/L CK-MB (CK-2) 1.6 (0.0-2.4) ng/mL Troponin I <0.012 (0.000-0.034) ng/mL Coagulation 02/03/18 Range/Units 14:08 PT 10.5 (9.0-12.0) sec APTT 24.4 (22.0-30.0) sec Lipids 02/04/18 Range/Units 02:06 Triglycerides 128 (<150) mg/dL Cholesterol 170 (<200) mg/dL HDL Cholesterol 40 (40-60) mg/dL CBC 02/03/18 Range/Units 14:08 WBC 11.8 H (3.8-10.6) k/uL RBC 5.11 (3.80-5.40) m/uL Hgb 14.8 (11.4-16.0) gm/dL Hct 43.2 (34.0-46.0) % Plt Count 231 (150-450) k/uL Comprehensive Metabolic Panel 02/03/18 Range/Units 14:08 Sodium 143 (137-145) mmol/L Potassium 3.7 (3.5-5.1) mmol/L Chloride 105 (98-107) mmol/L Carbon Dioxide 25 (22-30) mmol/L BUN 15 (7-17) mg/dL Creatinine 0.76 (0.52-1.04) mg/dL Glucose 89 (74-99) mg/dL Calcium 9.4 (8.4-10.2) mg/dL AST 32 (14-36) U/L ALT 34 (9-52) U/L Alkaline Phosphatase 52 (38-126) U/L Total Protein 6.7 (6.3-8.2) g/dL Albumin 4.2 (3.5-5.0) g/dL Current Medications Generic Name Dose Route Start Last Admin Trade Name Freq PRN Reason Stop Dose Admin Acetaminophen 650 mg 02/03/18 17:56 02/04/18 07:39 Tylenol Tab PO 650 mg Q4HR PRN Administration Fever and/ or Pain Aspirin 325 mg 02/04/18 09:00 02/04/18 08:27 Aspirin PO 325 mg DAILY [facility]WNY Administration Loratadine 10 mg 02/03/18 17:40 02/03/18 20:34 Claritin PO 10 mg DAILY PRN Administration Allergy Symptoms Nitroglycerin 1 inch 02/03/18 18:00 02/04/18 11:09 Nitro-Bid Oint TOPICAL Not Given Q6HR [facility] Nitroglycerin 0.4 mg 02/03/18 15:45 Nitrostat SUBLINGUAL Q5M PRN Chest Pain Naltrexone Hcl/ 2 tab 02/03/18 21:00 02/04/18 08:18 Bupropion Hcl [ PO Not Given Contrave Er 8-90 Mg BID TAWNY Tablet] 2 Tab Pantoprazole Sodium 40 mg 02/03/18 17:45 02/04/18 07:39 Protonix PO 40 mg AC-BID TAWNY Administration Intake and Output 02/03/18 02/04/18 02/04/18 22:59 06:59 14:59 Intake Total 300 Balance 300 Intake: Oral 300 Other: Voiding Method Toilet Toilet Toilet # Voids 2 Weight 102.1 kg 02/03/18 14:08 02/03/18 14:08
[2018-02-04 13:51] VITALS: BMI 36.3
--- NOTE | 2018-02-04 18:21 | EST ---
EXERCISE STRESS AGE: 37 SEX: Female. HT: 66 WT: 225 PROTOCOL: Murray. STAGE: 4 DURATION OF EXERCISE: 9:45 HEART RATE REST: 83 BLOOD PRESSURE REST: 78/55 MAXIMUM HEART RATE ACHIEVED: 158 MAXIMUM BLOOD PRESSURE: 184/47 85% MPHR: 157 100% MPHR: 185 METS: 11.3 INDICATIONS: Chest pain. CLINICAL INFORMATION: Lani Adan is a 37-year-old female who presented with chest discomfort with exertion. She underwent an exercise stress test. Baseline heart rate 83 beats per minute. Baseline blood pressure 78/55 mmHg. Patient exercised on a Murray protocol for 9 minutes 45 seconds, achieving a peak heart rate of 158 beats per minute. Normal blood pressure response to exercise. Baseline 12-lead ECG shows sinus rhythm with non-specific ST-T abnormalities. There was no ECG evidence for ischemia. No arrhythmias were noted. Good exercise capacity was noted. IMPRESSION: Good exercise capacity. No ECG evidence for ischemia during stress testing. Normal blood pressure response to exercise. MMODL / IJN: [id number] /
--- NOTE | 2018-02-05 07:34 | DS ---
DISCHARGE SUMMARY DATE OF ADMISSION: 02/03/18. DATE OF DISCHARGE: February 04, 2018. FINAL DIAGNOSES: 1. Anterior chest wall pain could be musculoskeletal. 2. Possible esophageal spasm. 3. Gastroesophageal reflux disease. 4. Obesity BMI 36.3. HOSPITAL COURSE: This patient is taking weight loss pill, the patient very active, does T25, presented with chest pain. Did undergo exercise stress test by Dr. Sherman that was negative. I had a lengthy talk with the patient and about lifestyle modification, how to lose weight by exercise and also getting a dietitian to see the patient. The patient was asked to discontinue her weight loss pill after discussing with the family doctor. DISCHARGE MEDICATIONS: 1. Prilosec 40 mg b.i.d. 2. Contraire 80/90 2 tablets b.i.d. 3. Zantac 150 mg q.h.s. FOLLOW UP: With Dr. Sherman in 6 weeks. Follow up with Dr. Bautista in 1 week. EXAM: Lungs are clear. Cardiovascular 1st and 2nd sounds normal. Discussion discharge planning more than [address] Bautista. MMODL / IJN: [id number] /
== END 2018-02-04 13:40 | disposition home or self-care (01) ==
LOC: EC 13:51 → 3OBS 15:45
PROVIDERS: ADMIT Hospitalist; ATTEND Hospitalist
DX: R07.89 Other chest pain (principal); R06.00 Dyspnea, unspecified; R00.2 Palpitations; R61 Generalized hyperhidrosis; K21.9 Gastro-esophageal reflux disease without esophagitis; D17.9 Benign lipomatous neoplasm, unspecified; Z68.36 Body mass index [BMI] 36.0-36.9, adult; E66.9 Obesity, unspecified; Z82.49 Family history of ischemic heart disease and other diseases of the circulatory system; Z79.51 Long term (current) use of inhaled steroids; Z79.899 Other long term (current) drug therapy; Z91.030 Bee allergy status; Z91.048 Other nonmedicinal substance allergy status; Z87.891 Personal history of nicotine dependence; Z83.2 Family history of diseases of the blood and blood-forming organs and certain disorders involving the immune mechanism; Z80.42 Family history of malignant neoplasm of prostate
CPT/HCPCS: 99285; 36415; 93005; 93017; 80061; 80053; 82550 ×2; 82553 ×2; 83735; 84484 ×2; 85025; 85610; 85730; 71046; G0378 ×2

== ENCOUNTER → 2019-04-22 | Outpatient (CLI) | payer BC ==
--- NOTE | 2019-04-23 11:39 | XR ---
EXAMINATION TYPE: XR ribs bilat w pa chest xray DATE OF EXAM: 04/22/2019 CLINICAL HISTORY: Left-sided lipoma removed one year ago with chest and bilateral rib pain. TECHNIQUE: Single frontal view of the chest is obtained. A frontal and oblique images of the left-saira ed ribs are acquired. COMPARISON: Chest x-ray February 03, 2018. FINDINGS: There is no focal air space opacity, pleural effusion, or pneumothorax seen. The cardiac silhouette size is within normal limits. The osseous structures are intact. Dedicated images of bilateral ribs show no acute displaced fracture. Overlying soft tissue is unremar kable bilaterally. IMPRESSION: As above.
== END | disposition home or self-care (01) ==
LOC: RADXRMAIN 16:26
PROVIDERS: ATTEND Pediatrics
DX: R07.81 Pleurodynia (principal)
CPT/HCPCS: 71111

== ENCOUNTER 2019-08-16 10:26 | Day surgery (SDC) | payer BC ==
[2019-08-12 15:19] VITALS: BMI 36.3
[~2019-08-16 10:26] MED LIST changes: -DEXAMETHASONE SOD PHOSPHATE 10 MG/ML 1 ML VIAL IV ONE; -HYDROmorphone 1 MG/ML 1 ML SYRINGE IVP PRN; -LACTATED RINGERS 1,000 ML IV SCH; +LIDOCAINE 1% 20 ML VIAL (10MG/ML) FOR IV START INTRADERMA PRN; -MIDAZOLAM 2 MG/2 ML VIAL IV PRN; -ONDANSETRON 4 MG/2 ML VIAL IVP ONE; -Pre Op ABX Message 1 EACH MISC MISCELLANE ONE; -SCOPOLAMINE 1.5MG/72HR PATCH TRANSDERM ONE
[2019-08-16 10:50] VITALS: RESP 16; TEMP 97.7
[2019-08-16] MEDS: LACTATED RINGERS 1,000 ML IV SCH ×2 (10:57→11:02)
[2019-08-16] MEDS ORDERED: PROPOFOL 10 MG/ML 20 ML VIAL IV ONE (11:05)
[2019-08-16] MEDS ORDERED: LIDOCAINE 1% INJ 10MG/ML (20 ML MDV) ONE (11:05)
--- NOTE | 2019-08-16 11:29 | P.PCN ---
Date of Procedure: 08/16/19 Description of Procedure: BRIEF HISTORY: Patient is a 39-year-old, pleasant, female presenting for outpatient esophagogastroduodenoscopy for evaluation of symptoms of GERD. Patient reports a long-standing history of reflux disease. Currently on omeprazole 40 mg twice daily and Zantac at night. The patient reports that she was having a flare of her symptoms in May but that currently symptoms have improved. PROCEDURE PERFORMED: Esophagogastroduodenoscopy with biopsy. PREOPERATIVE DIAGNOSIS: GERD. ESTIMATED BLOOD LOSS: Minimal. IV sedation per anesthesia. PROCEDURE: After informed consent was obtained, the patient was brought into the endoscopy unit. IV sedation was administered by Anesthesia under continuous monitoring. Initially the Olympus GIF-190 video endoscope was inserted into the mouth. Esophagus intubated without any difficulty. It was gradually advanced into the stomach and duodenum and carefully examined. The bulb and the second part of the duodenum appeared normal with biopsies taken to rule out celiac sprue. The scope at this time was withdrawn to the stomach, adequately insufflated with air, and upon careful examination, mucosa of the antrum, body, cardia and the fundus appeared normal except for some mild punctate erythema in the antrum and body suggestive of mild gastritis with biopsies taken. The scope was then withdrawn into the esophagus. The GE junction was located at 39 cm from the incisors and biopsied. The esophagus appeared normal. There were no erosions or ulcerations seen and the patient tolerated the procedure well. IMPRESSION: 1. Mild gastritis antrum and body, biopsied. 2. Biopsies of duodenum and GE junction. RECOMMENDATIONS: The findings of this examination were discussed with the patient and her . Okay to resume diet. Okay to resume medications. Await pathology from biopsies. Continue GERD lifestyle modifications.
[2019-08-16 11:43] VITALS: BP 104/66; PULSE 68
== END 2019-08-16 12:08 | disposition home or self-care (01) ==
LOC: ORWHC2ENDO 10:26
PROVIDERS: ATTEND Internal Medicine
DX: K29.50 Unspecified chronic gastritis without bleeding (principal); K21.9 Gastro-esophageal reflux disease without esophagitis; Z87.891 Personal history of nicotine dependence; Z91.048 Other nonmedicinal substance allergy status; Z79.51 Long term (current) use of inhaled steroids; Z79.899 Other long term (current) drug therapy; Z90.49 Acquired absence of other specified parts of digestive tract; Z98.891 History of uterine scar from previous surgery; Z98.51 Tubal ligation status; Z98.890 Other specified postprocedural states
CPT/HCPCS: 81025; 88305; 43239; J2001; J2704

== ENCOUNTER → 2022-05-05 | Outpatient (CLI) | payer BC ==
--- NOTE | 2022-05-06 10:47 | MM ---
Reason for Exam: Screening (asymptomatic). Last mammogram was performed 5 year(s) and 1 month(s) ago. Patient History: Menarche at age 13. First Full-Term at age 32. Late child-bearing (after 32). Last menstrual period: 05/03/2022 Risk Values: [place]ena 5 year model risk: 0.8%. NCI Lifetime model risk: 14.8%. Prior Study Comparison: 03/27/2017 Bilateral Screening Mammogram, [facility]. Tissue Density: The breast tissue is heterogeneously dense. This may lower the sensitivity of mammography. Findings: Analyzed By CAD. There is no suspicious group of microcalcifications or new suspicious mass in either breast. Overall Assessment: Negative, BI-RAD 1 Management: Screening Mammogram of both breasts in 1 year. A clinical breast exam by your physician is recommended on an annual basis and results should be correlated with mammographic findings. Electronically signed and approved by: Steve Ashford DO
== END | disposition home or self-care (01) ==
LOC: RADMAMWWP 13:07
PROVIDERS: ATTEND Obstetrics & Gynecology
DX: Z12.31 Encounter for screening mammogram for malignant neoplasm of breast (principal)
CPT/HCPCS: 77063; 77067

== ENCOUNTER → 2023-02-17 | Outpatient (CLI) | payer BC ==
[2023-02-17 21:33] LABS: Basophils # (A) 0.05 X 10*3/uL (0.00-0.10); Basophils % (A) 0.4 %; Eosinophils % (A) 0.8 %; HCT 45.2 % (37.2-46.3); HGB 14.5 g/dL (12.0-15.0); Immature Grans, Automated 0.3 %; Lymphocytes # (A) 3.24 X 10*3/uL (0.90-5.00); Lymphocytes % (A) 27.1 %; MCH 28.4 pg (27.0-32.0); MCHC 32.1 g/dL (32.0-37.0); MCV 88.6 fL (80.0-97.0); Mean Platelet Volume 11.2 fL (9.5-12.2); Monocytes # (A) 0.86 X 10*3/uL (0.20-1.00); Monocytes % (A) 7.2 %; NRBC Per 100 WBC 0 /100 WBCS (0.0-0.0); Neutrophils # (A) 7.66 X 10*3/uL (1.80-7.70); Neutrophils % (A) 64.2 %; Platelet Count 273 X 10*3/uL (140-440); RDW 13.3 % (11.5-14.5); WBC 11.95 X 10*3/uL (4.50-10.00)
[2023-02-17 23:00] LABS: African American GFR (CKD) 90.6 (60.0-200.0); Anion Gap 12.6 mmol/L (10.00-18.00); BUN/Creat Ratio 15.05 Ratio (12.00-20.00); Blood Urea Nitrogen 13.8 mg/dL (9.0-27.0); Calcium 9.5 mg/dL (8.7-10.3); Carbon Dioxide 24.5 mmol/L (20.0-27.5); Non-African American GFR(CKD) 78.2 (60.0-200.0)
== END | disposition home or self-care (01) ==
LOC: LABPAT 15:01
PROVIDERS: ATTEND Obstetrics & Gynecology
DX: Z01.812 Encounter for preprocedural laboratory examination (principal)
CPT/HCPCS: 80048; 85025

== ENCOUNTER 2023-02-26 05:39 | Day surgery (SDC) | payer BC ==
--- NOTE | 2023-02-25 12:38 | P.HPOB ---
History of Present Illness H&P Date: 02/25/23 Chief Complaint: Dysmenorrhea, pelvic pain This is a 42 y.o. female, 3, para 2, who presents for total laparoscopic hysterectomy with bilateral salpingectomy with Lucretia, with diagnostic cystoscopy, possible bilateral oophorectomy, possible total abdominal hysterect maty with bilateral salpingooophorectomy. She complains of dysmenorrhea and pelvic pain. She has previously had a Novasure endometrial ablation, but for the last couple years, her menses have become longer, heavier and more painful. She is currently on continuous control pills and ibuprofen to control her bleeding and pain, but would like definitive surgical treatment. Her pelvic ultrasound showed uterus measuring 7.6 x 6.6 x 4.6 cm with ill-defined endometrium. She does have a couple fluid collections within the endometrium. There also a couple small fibroids anteriorly, less than 1 cm. Her right ovary had a 1.2 cm cyst and her left ovary appeared normal. OB Hx: . History of 2 deliveries and 1 miscarriage. Set Up And Charger Hx: No history of STDs. Previous tubal ligation. Social Hx: . Works as a teacher. Review of Systems Constitutional: Denies chills, Denies fever Eyes: denies blurred vision, denies pain Ears, nose, mouth and throat: Denies sore throat Cardiovascular: Denies chest pain, Denies shortness of breath Respiratory: Denies cough Gastrointestinal: Reports abdominal pain, Reports heartburn Genitourinary: Reports dysmenorrhea, Reports pelvic pain, Reports stress incontinence Menstruation: Reports menses 1-7 days, Reports period heavy Musculoskeletal: Reports low back pain Integumentary: Denies pruritus, Denies rash Neurological: Reports headaches, Denies numbness, Denies weakness Psychiatric: Reports anxiety, Reports depression Endocrine: Denies fatigue, Denies weight change Past Medical History Past Medical History: Cancer, GERD/Reflux Additional Past Medical History / Comment(s): 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 hard to put to sleep w/EGD, needed more than normal per pt. Past Psychological History: Anxiety, Depression Smoking Status: Former smoker Past Alcohol Use History: Occasional Past Drug Use History: None Reported - Past Family History Father Family Medical History: Cancer Additional Family Medical History / Comment(s): PROSTATE CA, states father had bleeding disorder pt unsure name of disorder Sister(s) Family Medical History: Cancer Additional Family Medical History / Comment(s): CERVICAL CA ? Medications and Allergies Home Medications Medication Instructions Recorded Confirmed Type Cetirizine HCl [Zyrtec] 10 mg PO HS 08/12/19 02/24/23 History EPINEPHrine (Auto Inject) [Epipen] 0.3 mg IM ONCE PRN 08/12/19 02/24/23 History Fluticasone Nasal [place] [Flonase 2 spr EA NOSTRIL DAILY PRN 08/12/19 02/24/23 History Nasal [place]] Control 1 tab PO HS 02/24/23 02/24/23 History Famotidine [Pepcid] 80 mg PO HS 02/24/23 02/24/23 History buPROPion HCL [buPROPion HCL XL] 300 mg PO DAILY 02/24/23 02/24/23 History Allergies Allergy/AdvReac Type Severity Reaction Status Date / Time venom-honey bee Allergy Severe Anaphylaxis Verified 02/26/23 06:01 [bee venom (honey bee)] nickel Allergy Unknown Rash/Hives Verified 02/26/23 06:01 Exam Osteopathic Statement: *. No significant issues noted on an osteopathic structural exam other than those noted in the History and Physical/Consult. Intake and Output 02/24/23 02/25/23 02/25/23 22:59 06:59 14:59 Other: Weight 114.305 kg Gen: well-developed, well-nourished obese female in no acute distress HEENT: within normal limits Heart: regular rate and rhythm Lungs: clear to auscultation bilaterally Abdomen: soft, tender lower abdomen Pelvic: uterus anteverted, tender, with bilateral adnexal tenderness, no masses Extremities: neg. Susy's Assessment and Plan (1) Pelvic pain Current Visit: No Status: Acute Code(s): R10.2 - PELVIC AND PERINEAL PAIN SNOMED Code(s): 87604894 (2) Dysmenorrhea Current Visit: No Status: Acute Code(s): N94.6 - DYSMENORRHEA, UNSPECIFIED SNOMED Code(s): 767072918 (3) Menorrhagia with regular cycle Current Visit: No Status: Acute Code(s): N92.0 - EXCESSIVE AND FREQUENT MENSTRUATION WITH REGULAR CYCLE SNOMED Code(s): 000596273 Plan: Proceed with total laparoscopic hysterectomy with bilateral salpingectomy with Davinci and diagnostic cystoscopy, possible bilateral oophorectomy, possible total abdominal hysterectomy with bilateral salpingo-oophorectomy. I have discussed the risks, benefits, and alternative therapies for the above- mentioned procedure and for both sedation/anesthesia as well as necessary blood products administration, if indicated, as they pertain to this patient. The patient has indicated her understanding and acceptance of the risks and procedures discussed.
[2023-02-26] MEDS ORDERED: SCOPOLAMINE 1 MG/72 HR PATCH TRANSDERM ONE (05:46)
[2023-02-26] MEDS ORDERED: HYDROmorphone 0.5 MG/0.5 ML SYRINGE IVP PRN (05:46)
[2023-02-26] MEDS ORDERED: ONDANSETRON 4 MG/2 ML VIAL IVP ONE (05:46)
[2023-02-26] MEDS ORDERED: droPERidol 5 MG/2 ML VIAL IVP ONE (05:46)
[2023-02-26] MEDS ORDERED: LIDOCAINE 1% (10MG/ML) FOR IV START INTRADERMA PRN (05:46)
[2023-02-26] MEDS ORDERED: DEXAMETHASONE SOD PHOSPHATE 4 MG/ML 1 ML VIAL IV ONE (05:46)
[2023-02-26] MEDS: LACTATED RINGERS 1,000 ML IV SCH (06:29)
[2023-02-26] MEDS ORDERED: MIDAZOLAM 2 MG/2 ML VIAL IVP ONE (07:01)
[2023-02-26] MEDS ORDERED: fentaNYL (PF) 50 MCG/ML 2 ML AMP IVP ONE (07:01)
[2023-02-26] MEDS ORDERED: GLYCOPYRROLATE 0.2 MG/ML 2 ML VIAL ONE (07:12)
[2023-02-26] MEDS ORDERED: SODIUM CHLORIDE 0.9% (PF) 10 ML VIAL ONE (07:12)
[2023-02-26] MEDS ORDERED: MIDAZOLAM 2 MG/2 ML VIAL ONE (07:12)
[2023-02-26] MEDS ORDERED: SUCCINYLCHOLINE CHLORIDE 200 MG/10 ML VIAL IV ONE (07:12)
[2023-02-26] MEDS ORDERED: PROPOFOL 10 MG/ML 20 ML VIAL IV ONE (07:12)
[2023-02-26] MEDS ORDERED: KETOROLAC 15 MG/ML 1 ML VIAL ONE (07:12)
[2023-02-26] MEDS ORDERED: HYDROmorphone (PF) 1 MG/ML ONE (07:12)
[2023-02-26] MEDS ORDERED: LIDOCAINE 2% INJ 20 MG/ML (2 ML VIAL) ONE (07:12)
[2023-02-26] MEDS ORDERED: ROCURONIUM 10 MG/ML (5 ML VIAL) IV ONE (07:12)
[2023-02-26] MEDS ORDERED: NEOSTIGMINE 1 MG/ML 10 ML VIAL ONE (07:12)
[2023-02-26] MEDS ORDERED: ROPIVACAINE 5 MG/ML 30 ML VIAL ONE (07:12)
[2023-02-26] MEDS ORDERED: fentaNYL (PF) 50 MCG/ML 2 ML AMP ONE (07:12)
[2023-02-26] MEDS ORDERED: BUPIVACAINE (PF) 0.25% 30 ML VIAL SQ ONE ×2 (08:11→09:03)
[2023-02-26] MEDS ORDERED: LACTATED RINGERS 1,000 ML IV ONE (08:29)
--- NOTE | 2023-02-26 09:04 | P.ANPRN ---
Procedure Note - Anesthesia - Nerve Block Performed Bilateral Erector Spinae Time Out Performed: Yes (07:00) Date of Procedure: 02/26/23 Procedure Start Time: :00 Procedure Stop Time: : Location of Patient: PreOp Indication: Acute Post-Operative Pain, Requested by Surgeon (Dr Dinh) Sedation Type: Sedate with meaningful contact maintained Preparation: Sterile Prep Position: Prone Catheter: None Needle Types: Pajunk Needle Gauge: 21 Ultrasound used to visualize needle placement: Yes Ultrasound used to observe medication spread: Yes Injectate: 0.5% Ropivacaine (see comment for volume) (15cc +10cc PF Normal saline each side) Blood Aspirated: No Pain Paresthesia on Injection Noted: No Resistance on Injection: Normal Image Stored and Saved: Yes Events: Uneventful and Well Tolerated
--- NOTE | 2023-02-26 09:26 | P.OP ---
Date of Procedure: 02/26/23 Preoperative Diagnosis: 1. Dysmenorrhea. 2. Pelvic pain. 3. And menorrhagia with regular cycle. 4. History of previous endometrial ablation. Postoperative Diagnosis: Same Procedure(s) Performed: Robotic Total laparoscopic hysterectomy with bilateral salpingectomy with da Catrachita Diagnostic cystoscopy Anesthesia: RAMÓN Surgeon: Reema Dinh Forensic Economist #1: Leonor Finley Estimated Blood Loss (ml): 20 Pathology: other (Uterus with cervix, bilateral fallopian tubes) Condition: stable Disposition: floor Indications for Procedure: This is a 42 y.o. female, 3, para 2, who presents for total laparoscopic hysterectomy with bilateral salpingectomy with Davinci, with diagnostic cystoscopy, possible bilateral oophorectomy, possible total abdominal hysterectomy with bilateral salpingooophorectomy. She complains of dysmenorrhea and pelvic pain. She has previously had a Novasure endometrial ablation, but for the last couple years, her menses have become longer, heavier and more painful. She is currently on continuous control pills and ibuprofen to control her bleeding and pain, but would like definitive surgical treatment. Her pelvic ultrasound showed uterus measuring 7.6 x 6.6 x 4.6 cm with ill- defined endometrium. She does have a couple fluid collections within the endometrium. There also a couple small fibroids anteriorly, less than 1 cm. Her right ovary had a 1.2 cm cyst and her left ovary appeared normal. Operative Findings: Uterus is anteverted and sounded to 7 cm. Both ovaries appeared normal. The right fallopian tube is adherent slightly behind the right ovary there is evidence of previous tubal ligation. There are minimal adhesions from the anterior bladder to the lower uterine segment Upon cystoscopy, there is noted to be 2 ureteral orifices on the left side. Description of Procedure: The patient was taken to the operating room where after general anesthesia, she is placed in the dorsal lithotomy position on a pink foam to prevent movement. Her arms are tucked at her sides and cushioned. The testis completed. She is prepped and draped in the normal sterile fashion. Next a weighted speculum was placed in the patient's vagina. A right angle retractor is used to visualize the cervix. The anterior lip of the cervix is grasped with a single-tooth tenaculum. Uterus is sounded to 7 Cervix is gently dilated with Mcnamara dilators. Next the cervix is measured at 3 cm. 0 Vicryl stitches are placed at the 3 and 9:00 positions on the cervix and held. Next the HUMI manipulator is placed within the cervix and the balloon is inflated, and then the 0 Vicryl sutures are brought through the HUMI and then the cervical cup is pressed against the cervix until the click is heard. Next the bladder Moon catheter is inserted. Gloves are changed and attention is turned to the abdomen. The uterus is anteverted and then marked on the abdomen. An incision is made above the umbilicus approximately 8 cm above the top of the uterus and then a 5 mm disposable bladeless trocar is inserted under direct visualization with low flow. Once inside high flow is turned on and intra-abdominal contents were inspected. Another incision is made on the right side approximately 8 cm lateral to the umbilicus in the midline and a 8 mm da Catrachita port is placed under direct visualization. The same procedure is carried out on the left side. Next an speech and language assistant port is placed approximately 6 cm superior to the right da Catrachita port and lateral to the camera port using a 12 mm trocar under direct visualization. Next the 5 mm camera sleeved is replaced with an 8 mm da Catrachita port. Next the da Catrachita robot is docked to the patient from her left side. The ports are attached to the arms. Smoke evacuator is also attached. The camera is inserted and then a monopolar scissors is placed through the right port and a vessel sealer was placed through the left port under direct visualization. Energy is attached to both ports. At this time I broke scrub to go to the robot console. The end of the left fallopian tube is grasped by the speech and language assistant and the vessel sealer was used to cauterize the mesosalpinx and removing each portion of the fallopian tube. A portion of the tube is removed through the speech and language assistant port. There was a second portion of this to that was dilated and therefore placed in the posterior cul-de-sac for removal at the end. Next the uterine ovarian ligaments are cauterized with vessel sealer and then cut. The vessel sealer is also used to open up the broad ligament down to the uterosacral ligaments. Uterine arteries are then cauterized and cut with the vessel sealer. Monopolar scissors were then used to carefully dissect the bladder reflection and the bladder flap is created. Next attention is turned to the right side of the pelvis. The end of the right fallopian tube is grasped and then the vessel sealer is used to cauterize and then cut this portion of the tube. Once the tube is freed, this is removed through the speech and language assistant port. The uterine ovarian ligaments are cauterized with the vessel sealer and then the posterior edge of the broad leaf is opened up to the uterosacral ligaments. Uterine arteries are cauterized and cut with the vessel sealer. Next the uterus is retroverted and the balloon is inflated. Monopolar scissors are used to cut through the vaginal cuff along the HUMI cuff anteriorly. This is carried around to the right side again using monopolar energy. The uterus is anteverted and then the posterior cuff is cut along the HUMI cuff using monopolar scissors. The remainder of the left side of the cuff is removed with monopolar energy and vessel sealer. Once the uterus is freed it is removed through the vagina. The small portion of the left fallopian tube with the cyst is also removed manually. Monopolar and bipolar energy are used to cauterize any small bleeders left behind. Next the monopolar scissor is removed and a metal suture cut is placed. An O-Stratafix suture is then used to suture from the right side of the cuff across to the left side in a running fashion after securing the suture with the small loop on the end. Once the left side of the cuff was reached, a couple more sutures were placed going towards the right side to secure the suture. Suture was then cut and removed from the field. Irrigation was carried out. Good hemostasis was noted. Picture was taken. Both ovaries appeared normal. Next the instruments are removed from the arms. The arms are detached from the trochars. The da Catrachita robot is then undocked and stowed. The trochars are removed after releasing the pneumoperitoneum area incisions are then sutured with 4-0 undyed Vicryl suture in a subcuticular fashion and then injected with 1% lidocaine with epi. I regowned and cystoscopy was then performed. Both ureteral orifices were visualized with flow from both sides. Of note there is a second ureteral orifice on the left side of the pelvis. Cystoscopy was then completed and Moon catheter was replaced. Clear urine was noted. All sponge and needle counts are correct. The patient is then taken to recovery room in stable condition.
[2023-02-26] MEDS ORDERED: FLUTICASONE 50MCG/SPRAY NASAL 16GM EA NOSTRIL PRN (10:40)
[2023-02-26] MEDS ORDERED: ZOLPIDEM 5 MG TAB PO PRN (10:40)
[2023-02-26] MEDS ORDERED: ONDANSETRON 4 MG/2 ML VIAL IVP PRN (10:40)
[2023-02-26] MEDS ORDERED: diphenhydrAMINE 50 MG/ML 1 ML VIAL IVP PRN (10:40)
[2023-02-26] MEDS ORDERED: NON FORMULARY DRUG (Epinephrine (Auto Inject) 0.3 MG/0.3 ML Syringe) IM PRN (10:40)
[2023-02-26] MEDS ORDERED: SIMETHICONE 80 MG CHEWABLE PO PRN (10:40)
[2023-02-26] MEDS: IBUPROFEN 600 MG TAB PO PRN ×2 (12:37→20:22)
[2023-02-26] MEDS: ACETAMINOPHEN TAB 325 MG TAB PO PRN ×2 (18:16→23:29)
[2023-02-26] MEDS: LORATADINE 10 MG TAB PO SCH (20:22)
[2023-02-26] MEDS: SENNOSIDES-DOCUSATE SODIUM 1 EACH TAB PO SCH (20:23)
[2023-02-26] MEDS: FAMOTIDINE 20 MG TAB PO SCH (20:23)
[2023-02-26] MEDS ORDERED: FAMOTIDINE 20 MG TAB PO SCH (21:00)
[2023-02-27] MEDS: IBUPROFEN 600 MG TAB PO PRN (04:48)
[2023-02-27] MEDS: LACTATED RINGERS 1,000 ML IV SCH ×2 (05:56→12:23)
[2023-02-27 06:48] LABS: Basophils % (A) 0 %; Eosinophils # (A) 0.2 k/uL (0-0.7); Eosinophils % (A) 2 %; HCT 42.4 % (34.0-46.0); Lymphocytes # (A) 3.7 k/uL (1.0-4.8); Lymphocytes % (A) 26 %; MCH 28.7 pg (25.0-35.0); MCV 86.8 fL (80.0-100.0); Mean Platelet Volume 8.8; Monocytes # (A) 0.8 k/uL (0-1.0); Monocytes % (A) 6 %; Neutrophils # (A) 9.2 k/uL (1.3-7.7); Neutrophils % (A) 65 %; Platelet Count 257 k/uL (150-450); RBC 4.89 m/uL (3.80-5.40); WBC 14.2 k/uL (3.8-10.6)
--- NOTE | 2023-02-27 07:13 | P.DS ---
Providers Date of admission: 02/26/2023 Expected date of discharge: 02/27/23 Attending physician: Reema Dinh Primary care physician: Elmer Bautista - Discharge Diagnosis(es) (1) Pelvic pain Current Visit: No Status: Acute (2) Dysmenorrhea Current Visit: No Status: Acute (3) Menorrhagia with regular cycle Current Visit: No Status: Acute Hospital Course: This is a 42-year-old female who underwent a total laparoscopic hysterectomy with bilateral salpingectomy with da Catrachita and cystoscopy on 02/26/2023. Postoperatively she has done fairly well. Her pain is fairly well controlled with ibuprofen and Tylenol. She is not passing flatus or bowel movement yet but does feel some gurgles. He is urinating without difficulty. Bleeding has almost stopped. Vital signs are stable. Abdomen is soft with positive bowel sounds 4, slight distention due to gas. Incisions are covered with bandages and they are dry. Extremities show negative Homans. Impression is status post above-noted procedure postoperative day #1. Will discharge home today. Patient is encouraged to ambulate and continue with Mylicon at home if needed. She will be given a prescription for ibuprofen 600 mg every 6 hours as needed for pain. Routine postoperative instructions are reviewed. She is advised to follow up in the office in approximately one week for a postoperative check. She is advised to call the office if she has any further questions or concerns prior to her appointment time. Procedures: Robotic-assisted laparoscopic total hysterectomy with bilateral salpingectomy with da Catrachita and diagnostic cystoscopy on 02/26/2023 Patient Condition at Discharge: Stable Plan - Discharge Summary Discharge Rx Participant: Yes New Discharge Prescriptions: New Ibuprofen [Motrin] 600 mg PO Q6HR PRN #60 tab PRN Reason: Mild Discomfort Continue Fluticasone Nasal [place] [Flonase Nasal [place]] 2 spr EA NOSTRIL DAILY PRN PRN Reason: allergies EPINEPHrine (Auto Inject) [Epipen] 0.3 mg IM ONCE PRN PRN Reason: Anaphylaxis Cetirizine HCl [Zyrtec] 10 mg PO HS buPROPion HCL [buPROPion HCL XL] 300 mg PO DAILY Famotidine [Pepcid] 80 mg PO HS Discontinued Control 1 tab PO HS Discharge Medication List Cetirizine HCl [Zyrtec] 10 mg PO HS 08/12/19 [History] EPINEPHrine (Auto Inject) [Epipen] 0.3 mg IM ONCE PRN 08/12/19 [History] Fluticasone Nasal [place] [Flonase Nasal [place]] 2 spr EA NOSTRIL DAILY PRN 08/12/19 [History] Famotidine [Pepcid] 80 mg PO HS 02/24/23 [History] buPROPion HCL [buPROPion HCL XL] 300 mg PO DAILY 02/24/23 [History] Ibuprofen [Motrin] 600 mg PO Q6HR PRN #60 tab 02/27/23 [Rx] Follow up Appointment(s)/Referral(s): Reema Dinh DO [Doctor of Osteopathic Medicine] - 1 Week Activity/Diet/Wound Care/Special Instructions: Activity as tolerated. Diet as tolerated. May shower, but no tub baths for 1 week. No intercourse. No heavy lifting. May drive when reaction time to drive is normal. Discharge Disposition: HOME SELF-CARE
[2023-02-27] MEDS: ACETAMINOPHEN TAB 325 MG TAB PO PRN ×2 (08:13→15:42)
[2023-02-27] MEDS: SENNOSIDES-DOCUSATE SODIUM 1 EACH TAB PO SCH ×2 (09:14→20:08)
[2023-02-27] MEDS: FAMOTIDINE 20 MG TAB PO SCH ×2 (09:15→20:08)
[2023-02-27] MEDS: buPROPion XL 300 MG TAB.ER.24H PO SCH (09:15)
[2023-02-27] MEDS ORDERED: ACETAMINOPHEN TAB 325 MG TAB PO PRN (09:29)
[2023-02-27] MEDS ORDERED: ONDANSETRON 4 MG TAB PO PRN (11:22)
[2023-02-27] MEDS: KETOROLAC 15 MG/ML 1 ML VIAL IVP PRN ×2 (12:13→18:57)
--- NOTE | 2023-02-27 12:47 | P.PN ---
Progress Note - Text Progress Note Date: 02/27/23 I was called to see this patient regards to nausea and vomiting and increased left lower quadrant pain. Please see dictated admission history and physical, operative note, and progress note per Dr. Dinh on this patient's admission. Patient had a laparoscopic vaginal hysterectomy yesterday that was uncomplicated. She apparently is doing well however later this morning developed increased left-sided pain and some nausea vomiting. Patient was initially discharge by Dr. Perez to go home today however these symptoms then arose. Abdomen is soft she is not having any rebound. She does report tenderness over the left incision. She did receive Duramorph preoperatively. CBC this morning showed a mild white count elevation but otherwise was normal. My current impression is this is a normal postoperative findings however due to the patient's nausea and vomiting and increased pain we'll continue to monitor in patient was some IV hydration, repeat her CBC in the morning, and continue to watch closely.
[2023-02-27] MEDS ORDERED: HYDROmorphone 1 MG/ML 1 ML SYRINGE IVP PRN (16:57)
[2023-02-27] MEDS: METOCLOPRAMIDE 5 MG/ML 2 ML VIAL IVP PRN (17:21)
[2023-02-27] MEDS: LORATADINE 10 MG TAB PO SCH (20:08)
[2023-02-28] MEDS: METOCLOPRAMIDE 5 MG/ML 2 ML VIAL IVP PRN ×2 (00:24→06:22)
[2023-02-28] MEDS: KETOROLAC 15 MG/ML 1 ML VIAL IVP PRN ×2 (00:25→06:15)
[2023-02-28] MEDS: LACTATED RINGERS 1,000 ML IV SCH (00:33)
[2023-02-28 03:54] VITALS: RESP 16
[2023-02-28 05:36] LABS: Basophils % (A) 0 %; Eosinophils # (A) 0.2 k/uL (0-0.7); Eosinophils % (A) 2 %; HCT 41.2 % (34.0-46.0); HGB 13.5 gm/dL (11.4-16.0); Lymphocytes # (A) 2.9 k/uL (1.0-4.8); Lymphocytes % (A) 25 %; MCH 28.9 pg (25.0-35.0); MCHC 32.8 g/dL (31.0-37.0); MCV 88.2 fL (80.0-100.0); Mean Platelet Volume 8.2; Monocytes # (A) 0.6 k/uL (0-1.0); Monocytes % (A) 5 %; Neutrophils # (A) 7.8 k/uL (1.3-7.7); Neutrophils % (A) 66 %; Platelet Count 242 k/uL (150-450); RBC 4.67 m/uL (3.80-5.40); WBC 11.8 k/uL (3.8-10.6)
[2023-02-28 05:54] LABS: ALT 19 U/L (4-34); AST 28 U/L (14-36); African American GFR (CKD) >90 (>60 ml/min/1.73 sqM); Albumin 3.2 g/dL (3.5-5.0); Alkaline Phosphatase 46 U/L (38-126); Anion Gap 5 mmol/L; Blood Urea Nitrogen 14 mg/dL (7-17); Calcium 8.4 mg/dL (8.4-10.2); Carbon Dioxide 28 mmol/L (22-30); Chloride 103 mmol/L (98-107); Glucose 90 mg/dL (74-99); Non-African American GFR(CKD) >90 (>60 ml/min/1.73 sqM); Potassium 3.8 mmol/L (3.5-5.1); Sodium 136 mmol/L (137-145); Total Bilirubin 0.7 mg/dL (0.2-1.3); Total Protein 5.7 g/dL (6.3-8.2)
--- NOTE | 2023-02-28 06:59 | P.PN ---
Progress Note - Text Progress Note Date: 02/28/23 Postoperative day #2. Patient is feeling much better today and has had resolution of her nausea and vomiting. Repeat blood work this morning shows her white count is 11.8 which is consistent with her preoperative white count. Patient is afebrile. Her abdomen is soft nontender. Her pain has improved markedly since yesterday. Plan today is to see if she tolerates breakfast. If she does then she'll be discharged home follow up with Dr. Perez in 1 week.
[2023-02-28] MEDS: FAMOTIDINE 20 MG TAB PO SCH (07:56)
[2023-02-28] MEDS: SENNOSIDES-DOCUSATE SODIUM 1 EACH TAB PO SCH (07:56)
[2023-02-28] MEDS: buPROPion XL 300 MG TAB.ER.24H PO SCH (07:56)
[2023-02-28 08:07] VITALS: BP 106/69; PULSE 82; TEMP 98.1
== END 2023-02-28 10:50 | disposition home or self-care (01) ==
LOC: OR 05:39 → 4FBP 09:54 → OR 02-28 10:50
PROVIDERS: ATTEND Obstetrics & Gynecology
DX: N80.03 Adenomyosis of the uterus (principal); N72 Inflammatory disease of cervix uteri; N94.6 Dysmenorrhea, unspecified; N92.0 Excessive and frequent menstruation with regular cycle; G89.18 Other acute postprocedural pain; K21.9 Gastro-esophageal reflux disease without esophagitis; F32.A Depression, unspecified; F41.9 Anxiety disorder, unspecified; Z85.820 Personal history of malignant melanoma of skin; Z98.51 Tubal ligation status; Z90.49 Acquired absence of other specified parts of digestive tract; Z98.891 History of uterine scar from previous surgery; Z87.891 Personal history of nicotine dependence; Z86.59 Personal history of other mental and behavioral disorders; Z79.899 Other long term (current) drug therapy; Z91.030 Bee allergy status
CPT/HCPCS: 58571; 81025; 64999; 86900; 86901; 80053; 85025 ×2; 86850; 88307; J2250; J0330; J1100; J2710; J2765 ×2; J0690; J2405 ×2; J3010; J1170 ×2; J2795; J1885 ×3; J2704; J2001

== ENCOUNTER → 2023-05-08 | Outpatient (CLI) | payer BC ==
--- NOTE | 2023-05-11 20:42 | MM ---
Reason for Exam: Screening (asymptomatic). Last screening mammogram was performed 12 month(s) ago. Patient History: Menarche at age 13. First Full-Term at age 32. Late child-bearing (after 30). Hysterectomy at age 42. Postmenopausal. Risk Values: Beena 5 year model risk: 0.9%. NCI Lifetime model risk: 14.7%. Prior Study Comparison: 03/27/2017 Bilateral Screening Mammogram, [facility]. 05/05/2022 Bilateral MG 3D screening mammo w/cad, [facility]. Tissue Density: The breast tissue is heterogeneously dense. This may lower the sensitivity of mammography. Findings: Analyzed By CAD. There is no suspicious group of microcalcifications or new suspicious mass in either breast. Overall Assessment: Negative, BI-RAD 1 Management: Screening Mammogram of both breasts in 1 year. . Patient should continue monthly self-breast exams. A clinical breast exam by your physician is recommended on an annual basis. This exam should not preclude additional follow-up of suspicious palpable abnormalities. Note on Beena scores and lifetime risk: 1. A Beena score greater than 3% is considered moderate risk. If this is the case, consider specialist referral to assess eligibility for a risk reducing agent. 2. If overall lifetime risk for the development of breast cancer is 20% or higher, the patient may qualify for future screening with alternating mammogram and breast MRI. Electronically signed and approved by: Saira Bradford M.D. Radiologist
== END | disposition home or self-care (01) ==
LOC: RADMAMWWP 13:48
PROVIDERS: ATTEND Obstetrics & Gynecology
DX: Z12.31 Encounter for screening mammogram for malignant neoplasm of breast (principal); Z78.0 Asymptomatic menopausal state
CPT/HCPCS: 77063; 77067

== ENCOUNTER → 2024-04-08 | Outpatient (CLI) | payer BC ==
--- NOTE | 2024-04-08 13:44 | MM ---
Reason for Exam: Clinical finding. Last screening mammogram was performed 11 month(s) ago. Indicated Problems: Pain of the left side (Global) for 2 Month(s) : waxing and waning. Patient History: Menarche at age 13. First Full-Term at age 32. Late child-bearing (after 30). Hysterectomy at age 42. Patient has history of breast feeding. Risk Values: Beena 5 year model risk: 1.0%. NCI Lifetime model risk: 14.6%. Prior Study Comparison: 03/27/2017 Bilateral Screening Mammogram, [facility]. 05/05/2022 Bilateral MG 3D screening mammo w/cad, [facility]. 05/08/2023 Bilateral MG 3D screening mammo w/cad, [facility]. Tissue Density: The breasts are heterogeneously dense, which may obscure small masses. Findings: Analyzed By CAD. No significant change from prior exams. Overall Assessment: Incomplete: need additional imaging evaluation, BI-RAD 0 Management: Diagnostic Breast Ultrasound of the left breast. For pain as ordered. Electronically signed and approved by: Saira Bradford M.D. Radiologist
--- NOTE | 2024-04-08 14:52 | USB ---
Reason for Exam: Clinical finding. Patient History: Menarche at age 13. First Full-Term at age 32. Late child-bearing (after 30). Hysterectomy at age 42. Patient has history of breast feeding. Risk Values: Beena 5 year model risk: 1.0%. NCI Lifetime model risk: 14.6%. Technique: Method: Whole Breast Handheld. Prior Study Comparison: 03/27/2017 Bilateral Screening Mammogram, [facility]. 05/05/2022 Bilateral MG 3D screening mammo w/cad, [facility]. 05/08/2023 Bilateral MG 3D screening mammo w/cad, [facility]. Findings: The whole breast of the left breast, the axilla of the left breast and the retroareolar of the left breast were scanned. A complete US of all four quadrants of the breast, axilla, and retro-areolar region were reviewed. No solid or cystic masses are identified. No solid or cystic lesion or axillary lymphadenopathy. Overall Assessment: Negative, BI-RAD 1 Management: Screening Mammogram of both breasts in 1 year. Further clinical management of patient's left breast pain. A clinical breast exam by your physician is recommended on an annual basis and results should be correlated with mammographic findings. This exam should not preclude additional follow-up of suspicious palpable abnormalities. Results were given to the patient verbally at the time of exam. Electronically signed and approved by: Saira Bradford M.D. Radiologist
== END | disposition home or self-care (01) ==
LOC: RADMAMWWP 13:01
PROVIDERS: ATTEND Obstetrics & Gynecology
DX: N64.4 Mastodynia (principal); R92.333 Mammographic heterogeneous density, bilateral breasts; Z01.419 Encounter for gynecological examination (general) (routine) without abnormal findings
CPT/HCPCS: 77062; 77066